=== PATIENT | female | born 1990 | race Caucasian/White ===

== ENCOUNTER → 2016-08-20 | Outpatient (CLI) | payer OTHER ==
[~2016-08-20] MED LIST: /DEXA4TA OR; /LOR25TA OR; ACET50TA PO; ACET65TA OR; ANUS2.5C2 TOP; CLIN300C OR; DOCU100C PO; IBUP80TA PO; MOM30SS PO; No Historical Meds; PRENATAL VITAMIN PO
--- NOTE | 2016-08-20 14:18 | REP ---
Chest two views HISTORY: Chest pain Comparison: None The lungs are clear. The heart is normal in size. The pulmonary vasculature is normal in appearance. The bony structure is intact. IMPRESSION: No acute disease.
== END ==
LOC: M CLY 13:46
PROVIDERS: ATTEND Family Medicine
DX: R07.9 Chest pain, unspecified (principal)

== ENCOUNTER → 2016-12-12 | Outpatient (REF) | payer OTHER ==
[2016-12-12 12:32] LABS: FREE T4 0.89 NG/DL (0.76-1.46)
== END ==
LOC: M SFHCCLAY 08:40
PROVIDERS: ATTEND Family Medicine
DX: E07.9 Disorder of thyroid, unspecified (principal)

== ENCOUNTER → 2017-01-28 | Outpatient (REF) | payer OTHER ==
[2017-01-28 11:29] LABS: CONTROL LINE HCG INT CTR LINE PRESENT
[2017-01-28 12:57] LABS: ALBUMIN 3.6 GM/DL (3.2-5.2); ALBUMIN/GLOBULIN RATIO 1.03 (1.00-1.93); ALKALINE PHOSPHATASE 68 U/L (45-117); ALT/SGPT 10 U/L (12-78); ANION GAP 9 MEQ/L (8-16); AST/SGOT 10 U/L (15-37); BILIRUBIN,TOTAL 0.3 MG/DL (0.2-1.0); BLOOD UREA NITROGEN 12 MG/DL (7-18); CALCIUM LEVEL 8.8 MG/DL (8.5-10.1); CARBON DIOXIDE LEVEL 25 MEQ/L (21-32); CHLORIDE LEVEL 105 MEQ/L (98-107); CREATININE FOR GFR 0.69 MG/DL (0.55-1.02); GLOMERULAR FILTRATION RATE > 60.0 (>60); GLUCOSE, FASTING 95 MG/DL (70-105); POTASSIUM SERUM 4.3 MEQ/L (3.5-5.1); SODIUM LEVEL 139 MEQ/L (136-145); TOTAL PROTEIN 7.1 GM/DL (6.4-8.2)
== END ==
LOC: M SFHCCLAY 07:54
PROVIDERS: ATTEND Nurse Practitioner
DX: E66.01 Morbid (severe) obesity due to excess calories (principal)

== ENCOUNTER → 2018-01-27 | Outpatient (CLI) | payer OTHER ==
[2018-01-27 18:30] LABS: BASO % 0.3 % (0.0-1.0); EOS # 0.1 10^3/uL (0.0-0.50); HEMATOCRIT 36.3 % (36.0-47.0); IMMATURE GRANULOCYTE % 0.2 % (0-3.0); LYMPH % 33.3 % (24.0-44.0); MEAN CORPUSCULAR HEMOGLOBIN 27.7 pg (27.0-33.0); MEAN CORPUSCULAR HGB CONC 33.1 g/dl (32.0-36.5); MEAN CORPUSCULAR VOLUME 83.8 fl (80.0-96.0); MONO # 0.3 10^3/uL (0.0-0.8); MONO % 4.4 % (0.0-5.0); NEUTROPHILS # 3.6 10^3/uL (1.8-7.7); NEUTROPHILS % 59.8 % (36.0-66.0); RED BLOOD COUNT 4.33 10^6/uL (4.00-5.40); RED CELL DISTRIBUTION WIDTH 14.1 % (11.5-14.5); WHITE BLOOD COUNT 5.9 10^3/uL (4.0-10.0)
[2018-01-27 18:59] LABS: GLUCOSE CHALLENGE TEST 1 HOUR 123 MG/DL (LESS THAN 140)
[2018-01-27 19:06] LABS: POS COUNT POS FLAG
[2018-01-27 19:20] LABS: RUBELLA IgG QUALITATIVE IMMUNE (IMMUNE)
[2018-01-27 19:49] LABS: HIV 1&2 SCREEN CENTAUR NEGATIVE (NEGATIVE)
[2018-01-27 21:39] LABS: CHLAMYDIA DNA AMPLIFICATION NEGATIVE (NEGATIVE); GC DNA AMPLIFICATION NEGATIVE (NEGATIVE)
[2018-01-29 11:04] LABS: HEPATITIS B SURFACE ANTIGEN NEGATIVE (NEGATIVE)
== END ==
LOC: M LAB 16:01
DX: Z34.81 Encounter for supervision of other normal pregnancy, first trimester (principal); Z3A.08 8 weeks gestation of pregnancy
CPT/HCPCS: 82950

== ENCOUNTER 2019-03-12 15:11 | Emergency (ER) | payer OTHER ==
[~2019-03-12] VITALS: Ht 167.6 cm; Wt 108.7 kg
[~2019-03-12 15:11] MED LIST changes: -/DEXA4TA OR; -ACET50TA PO; +DEXA1TAB8 OR; +MAPA500T17 PO
[2019-03-12] MEDS ORDERED: IRON65TA2 PO (15:25)
[2019-03-12] MEDS ORDERED: NS 1,000 ML IV ONE (16:00)
[2019-03-12 16:33] LABS: BASO # 0.1 10^3/uL (0.0-0.2); BASO % 0.6 % (0.0-1.0); EOS # 0.2 10^3/uL (0.0-0.50); EOS % 2.3 % (0.0-3.0); HEMATOCRIT 39.8 % (36.0-47.0); HEMOGLOBIN 12.7 g/dl (12.0-15.5); LYMPH % 37.6 % (24.0-44.0); MEAN CORPUSCULAR HEMOGLOBIN 27.4 pg (27.0-33.0); MEAN CORPUSCULAR HGB CONC 31.9 g/dl (32.0-36.5); MEAN CORPUSCULAR VOLUME 85.8 fl (80.0-96.0); MONO # 0.6 10^3/uL (0.0-0.8); MONO % 7.9 % (0.0-5.0); NEUTROPHILS # 4.1 10^3/uL (1.8-7.7); NEUTROPHILS % 51.3 % (36.0-66.0); PLATELET COUNT, AUTOMATED 199 10^3/uL (150-450); RED BLOOD COUNT 4.64 10^6/uL (4.00-5.40); WHITE BLOOD COUNT 7.9 10^3/uL (4.0-10.0)
--- NOTE | 2019-03-12 16:47 | REP ---
Clinical: Lower chest and abdominal pain . Comparison: 08/20/2016 . Technique: PA and lateral. Findings: The mediastinum and cardiac silhouette are normal. The lung arteaga are clear and without acute consolidation, effusion, or pneumothorax. The skeletal structures are intact and normal. Impression: 1. No acute cardiopulmonary process. Electronically Signed by Esvin Shah MD 03/12/2019 04:38 P
[2019-03-12 17:06] LABS: ALBUMIN 3.7 GM/DL (3.2-5.2); ALT/SGPT 14 U/L (12-78); BILIRUBIN,DIRECT < 0.1 MG/DL (0.0-0.2); BILIRUBIN,TOTAL 0.1 MG/DL (0.2-1.0); BLOOD UREA NITROGEN 15 MG/DL (7-18); CARBON DIOXIDE LEVEL 25 MEQ/L (21-32); CHLORIDE LEVEL 108 MEQ/L (98-107); CK-MB VALUE MASS < 1.0 NG/ML (<3.6); CPK CREATINE PHOSPHOKINASE 52 U/L (26-192); CREATININE FOR GFR 0.71 MG/DL (0.55-1.30); GLOMERULAR FILTRATION RATE > 60.0 (>60); GLUCOSE, FASTING 76 MG/DL (70-100); LIPASE 178 U/L (73-393); MB/CK RELATIVE INDEX 1.92 (< OR =4); SODIUM LEVEL 139 MEQ/L (136-145); TOTAL PROTEIN 7.6 GM/DL (6.4-8.2); TROPONIN I < 0.02 NG/ML (< 0.10)
[2019-03-12 18:34] VITALS: BP 111/75
[2019-03-12 19:29] LABS: HCG, SERUM QUALITATIVE NEGATIVE (NEGATIVE)
--- NOTE | 2019-03-13 21:56 | ECGEPIP ---
[facility] [place] - ED Test Date: 2019-03-12 Pat Name: VERONIKA THOMPSON Department: Room: - Gender: Female Materials Engineer: moustapha : 1990 Requested By: SHELBY Quick PA-C Order Number: [id number] Reading MD: Cesar Daily Measurements Intervals Joshua Rate: 74 P: 23 MA: 139 QRS: 8 QRSD: 107 T: 16 QT: 387 QTc: 431 Interpretive Statements SINUS RHYTHM MODERATE INTRAVENTRICULAR CONDUCTION DELAY NSTTW ABNORMALITIES SIMILAR TO 01/18/15 Electronically Signed on 03-13-2019 21:55:54 EDT by Cesar Daily
== END 2019-03-12 19:23 | disposition home or self-care (01) ==
LOC: M ED 15:11
DX: R10.9 Unspecified abdominal pain (principal); R19.7 Diarrhea, unspecified; F90.9 Attention-deficit hyperactivity disorder, unspecified type